=== PATIENT | female | born 1950 ===

== ENCOUNTER 2018-06-29 18:29 | Emergency (ER) | payer MEDICARE, MEDICAID ==
[2018-06-29 18:38] VITALS: BP 137/76; PULSE 76; RESP 16; TEMP 98.3; O2SAT 100
[2018-06-29 18:39] VITALS: BMI 30.4
[2018-06-29] MEDS ORDERED: Naproxen 500 MG TAB PO STA (19:28)
[2018-06-29] MEDS ORDERED: Naproxen 500 MG TAB PO ONE (19:38)
--- NOTE | 2018-06-29 19:41 | ED PDOC ---
Lower Extremity Pain/Injury Time Seen by Provider: 06/29/18 18:45 Chief Complaint (Nursing): Lower Extremity Problem/Injury Chief Complaint (Provider): Left Foot Injury History Per: Patient History/Exam Limitations: no limitations Onset/Duration Of Symptoms: Days (x4) Current Symptoms Are (Timing): Still Present Additional Complaint(s): 68 year old female presents to the ED for evaluation of left foot injury. Patient states that four days ago while visiting her granddaughter, she tripped and fell down two stairs. At the time of the incident, she notes her second through fourth toes on her left foot bent backwards, and since has been experiencing increasing pain and bruising. Patient reports the pain is worse with bearing weight and walking, resulting in her limping, but denies taking any medications prior to arrival. Otherwise, (-) prior foot injury, (-) other complaints at present (-) fever/chills (-) head injury. PMD: in [facility] Past Medical History Reviewed: Historical Data, Nursing Documentation, Vital Signs Vital Signs: Last Vital Signs Temp 98.3 F 06/29/18 18:37 Pulse 76 06/29/18 18:37 Resp 16 06/29/18 18:37 BP 137/76 06/29/18 18:37 Pulse Ox 100 06/29/18 18:37 - Medical History PMH: No Chronic Diseases - Surgical History Other surgeries: left eye surgery - Family History Family History: States: Unknown Family Hx - Social History Current smoker - smoking cessation education provided: No Alcohol: None Drugs: Denies - Home Medications Home Medications: Ambulatory Orders Medication Instructions Recorded Acetaminophen [Acetaminophen 8 650 mg PO Q8 #21 tablet.er 06/29/18 Hour] - Allergies Allergies/Adverse Reactions: Allergies Allergy/AdvReac Type Severity Reaction Status Date / Time No Known Allergies Allergy Verified 06/29/18 18:39 Review of Systems ROS Statement: Except As Marked, All Systems Reviewed And Found Negative Musculoskeletal: Positive for: Foot Pain (left, 2nd-4th toes increased pain and bruising) Physical Exam - Reviewed Nursing Documentation Reviewed: Yes Vital Signs Reviewed: Yes - Physical Exam Comments: GENERAL APPEARANCE: Patient is awake, alert, oriented x 3, in no acute distress. Limping in ED. SKIN: Warm, dry; (-) cyanosis. NECK: Supple, FROM ENT: Mucus membranes moist. Airway patent, (-) stridor. LEFT LOWER EXTREMITY: (+) tenderness to distal aspect of 2nd-4th metatarsals of left foot, (+) swelling, (+) ecchymosis. (+) tenderness to proximal aspect of 2 nd-4th toes of left foot, (+) swelling, (+) ecchymosis. Full ROM to ankle and knee. (-) calf tenderness (-) palpable cord. Sensation and cap refill intact, (- ) distal NV deficit. HEART AND CARDIOVASCULAR: (-) irregularity; (-) murmur CHEST AND RESPIRATORY: (-) rales, (-) rhonchi, (-) wheezes; breath sounds equal. Respirations even and nonlabored. NEURO AND PSYCH: Mental status as above. Speech clear, (-) focal deficit (-) facial asymmetry. - ECG O2 Sat by Pulse Oximetry: 100 (RA) Pulse Ox Interpretation: Normal Medical Decision Making Medical Decision Making: Time: 1927 Initial Impression: acute foot injury s/p fall, contusion vs fracture Initial Plan: --Naproxen 500 mg PO --Left foot XR --Re-evaluation 1952 XR Foot: (+) fracture of distal third metatarsal, (+) fracture of the proximal phalanx of fourth toe, as read by PA. Patient advised that official radiology read of XR is still pending and will call the patient if there is any discrepancy within 24 hours. 1954 Consult to podiatry placed, and resident Nathen Guerra is agreeable to see pt in the ED. [address] ordered per podiatry. [address] scan[address] 2129 Podiatry at bedside. Daniel tape and surgical shoe applied. See Consult note. 2139 CT reviewed FINDINGS: Bones/joints: Normal alignment is maintained; no evidence of Lisfranc dislocation. Mildly displaced intra-articular acute fracture of the fourth proximal phalanx. Minimally displaced acute fracture of the neck of the third metatarsal. Subtle impaction deformity of the fourth metatarsal head, suspicious for fracture. No ankle effusion. Juxta-articular erosions and marginal osteophyte formation affects the cuboid-fourth metatarsal joint with mild joint space narrowing. Mild osteoarthritis of the tarsal bones. Soft tissues: Dorsal and lateral soft tissue swelling. No drainable fluid collection. No radiopaque foreign body. IMPRESSION: 1. Normal alignment; no evidence of Lisfranc dislocation. 2. Mildly displaced intra-articular acute fracture of the fourth proximal phalanx. Subtle impaction deformity of the fourth metatarsal head, suspicious for fracture. 3. Minimally displaced acute fracture of the neck of the third metatarsal. Thank you for allowing us to participate in the care of your patient. Dictated and Authenticated by: Rhett Cornejo MD 06/29/2018 9:41 PM Eastern Time ([place] & [place]) Per podiatry evaluation, patient to be discharged and will follow up in Dr Clark's office. On re-evaluation, patient reports improvement of symptoms. On exam, patient remains AAOx3, in no acute distress. On exam, neck is supple, lungs CTA, cardiac RRR, neuro exam shows no focal findings. VSS, stable for discharge. RICE encouraged. Diagnostic results d/w the patient in great detail. Dx of acute foot pain/ fracture, toe fracture d/w the patient. Based on history, exam and diagnostic results plan will be for discharge and outpatient podiatry follow up. Advised to follow up with primary care physician/podiatry in 1-2 days without fail. Advised to take medication as prescribed. Return to the emergency room at any time for any new or worsening symptoms. Patient states she fully agrees with and understands discharge instructions. States that she agrees with the plan and disposition. Verbalized and repeated discharge instructions and plan. I have given the patient opportunity to ask any additional questions. Scribe Attestation: Documented by Funmi Zaragoza, acting as a scribe for Meredith Olivares PA-C. Provider Scribe Attestation: All medical record entries made by the Scribe were at my direction and personally dictated by me. I have reviewed the chart and agree that the record accurately reflects my personal performance of the history, physical exam, medical decision making, and the department course for this patient. I have also personally directed, reviewed, and agree with the discharge instructions and disposition. Disposition - Clinical Impression Clinical Impression: Toe fracture, Metatarsal fracture, Foot pain - Patient ED Disposition Is Patient to be Admitted: No Counseled Patient/Family Regarding: Studies Performed, Diagnosis, Need For Followup, Rx Given - Disposition Referrals: Fortunato Clark DPM [Staff Provider] - Disposition: Routine/Home Disposition Time: 21:41 Condition: IMPROVED Additional Instructions: FOLLOW UP WITH PODIATRY INSTRUCTED. RETURN TO ED WITH ANY NEW OR WORSENING SYMPTOMS. REST ICE COMPRESS ELEVATE Prescriptions: Acetaminophen [Acetaminophen 8 Hour] 650 mg PO Q8 #21 tablet.er Instructions: Toe Fracture, Muscle and Bone Pain (DC), Foot Fracture (DC) Forms: [facility] (Bengali) Print Language: MONGOLIAN - POA Present On Arrival: Falls Or Trauma
--- NOTE | 2018-06-30 06:51 | RAD ---
Date of service: 06/29/2018 PROCEDURE: Left Foot Radiographs. HISTORY: s/p fall COMPARISON: None. FINDINGS: BONES: Normal. No fracture. JOINTS: Normal. SOFT TISSUES: Normal. OTHER FINDINGS: None. IMPRESSION: Normal left foot radiographs.
--- NOTE | 2018-06-30 08:44 | CP.PCM.CON ---
History of Present Illness - History of Present Illness History of Present Illness: Podiatry consult note for Dr. Clark 68 yo presents to ED and seen for left foot pain s/p fall down stairs. She presents with her granddaughter today who serves as machine iii coremaker. States she was hanging something up last Monday and slipped down a few steps and immediately was in severe pain to the point which she could not walk. She states that she started feeling better over the next few days and was able to ambulate but noticed that her swelling and bruising were not going away. States the pain was localized to her 3rd and 4th toes and to the top of the front of her foot. States that she is in no pain today. Denies N/V/F/C/SOB/CP/pain in posterior calf and has no other pedal complaints today. PMHx None PSHx Denies All NKDA Past Patient History - Past Social History Alcohol: None Drugs: Denies - PSYCHIATRIC Hx Substance Use: No Meds Home Medications: Home Medication List Medication Instructions Recorded Confirmed Type Acetaminophen [Acetaminophen 8 650 mg PO Q8 #21 tablet.er 06/29/18 Rx Hour] Allergies/Adverse Reactions: Allergies Allergy/AdvReac Type Severity Reaction Status Date / Time No Known Allergies Allergy Verified 06/29/18 18:39 Physical Exam - Constitutional Appears: Well, Non-toxic, No Acute Distress - Head Exam Head Exam: ATRAUMATIC, NORMOCEPHALIC - Extremities Exam Additional comments: Vasc: DP and PT pulses palpable 2/4 b/l; temp gradient warm to cool from proximal to distal; cap refill <3 seconds to all digits; mild edema at the dorsal midfoot and forefoot; mild erythema about digits 3 and 4 and to the dorsal forefoot Derm: left foot: eccyhmosis present dorsally at digits 3 and 4 and dorsal forefoot proximal to 2-4 digits; no open lesions, drainage, pus, or any clinical signs of infection, no streaking; mild erythema at the dorsum of digits 3 and 4 Neuro: gross and protective sensation intact b/l Ortho: left foot: pain on palpation of digits 3 and 4; mild tenderness on piano tinajero test for lisfranc ligament; no pain on ROM of the digits both active and passive; muscle testing wnl at the ankle - Neurological Exam Neurological exam: Alert, Oriented x3 - Psychiatric Exam Psychiatric exam: Normal Affect, Normal Mood Results - Vital Signs Recent Vital Signs: Last Vital Signs Temp 98.3 F 06/29/18 18:37 Pulse 76 06/29/18 18:37 Resp 16 06/29/18 18:37 BP 137/76 06/29/18 18:37 Pulse Ox 100 06/29/18 21:49 Assessment & Plan - Assessment and Plan (Free Text) Assessment: 68 yo presents to the ED with left foot proximal fourth digit proximal phalanx base chip fracture and nondisplaced third metatarsal shaft fracture. Plan: Patient seen and evaluated Discussed with attending Dr. Clark X-rays ordered - chip fracture of left fourth digit proximal phalanx medial base CT - no evidence of lisfranc rupture; nondisplaced third metatarsal shaft fracture Patient placed in robina splint of third and fourth toes and dispensed surgical shoe for ambulation Discussed weight bearing as tolerated ambulation status as well as RICE protocol Remain in surgical shoe and continue to robina splint until follow up visit with Dr. Clark at private office at the end of this coming week Evaluate healing and pain on follow up visit Thank you for the consult. - Date & Time Date: 06/29/18 Time: 21:15
--- NOTE | 2018-06-30 08:55 | CT ---
Date of service: 06/29/2018 PROCEDURE: HISTORY: r/o lisfranc COMPARISON: TECHNIQUE: FINDINGS: No evidence of Lisfranc fracture. No misalignments. A mildly displaced intra-articular fracture of the 4th proximal phalanx. Subtle impaction deformity of the 4th metatarsal head suspicious for fracture. Minimally displaced acute fracture of the neck of the 3rd metatarsal. Dorsal soft tissue swelling. IMPRESSION: Fractures as discussed above.
== END 2018-06-29 21:58 | disposition home or self-care (01) ==
LOC: H.ER 18:29
DX: S92.302A Fracture of unspecified metatarsal bone(s), left foot, initial encounter for closed fracture (principal); W10.9XXA Fall (on) (from) unspecified stairs and steps, initial encounter; Y92.89 Other specified places as the place of occurrence of the external cause